=== PATIENT | male | born 1970 | race African-American/Black ===

== ENCOUNTER → 2022-01-27 | Day surgery (SDC) | payer BC ==
[~2022-01-27] MED LIST: CIALIS5 MG PO; FENTANYL CITRATE/PF 100MCG/2 ML INJ ONE; GLUCAGON FOR INJ 1 MG VIAL ONE; HYOSCYAMINE SULFATE 0.5 MG/ML INJ ONE; LEFLUNOMIDE10 MG PO; LIDOCAINE HCL 2% LOCAL INJ 5 ML SDV VIAL INJ ONE; METHOTREXATE PO; PLAQUENIL200 MG PO; PROPOFOL IV EMULSION 50 ML IV ONE; PROTONIX20 MG PO
[2022-01-27 11:30] VITALS: BP 121/83
== END | disposition home or self-care (01) ==
LOC: OR 09:04
PROVIDERS: ATTEND Internal Medicine Gastroenterology
DX: Z12.11 Encounter for screening for malignant neoplasm of colon (principal); D12.0 Benign neoplasm of cecum; K62.89 Other specified diseases of anus and rectum; K64.8 Other hemorrhoids; F17.210 Nicotine dependence, cigarettes, uncomplicated; Z71.6 Tobacco abuse counseling; Z01.810 Encounter for preprocedural cardiovascular examination
CPT/HCPCS: 45380; 45385; 93005; J1610; J1980; J2704; 45378; J2001; J3010

== ENCOUNTER 2022-06-24 07:00 | Outpatient (RCR) | payer BC ==
[~2022-06-24 07:00] MED LIST changes: -FENTANYL CITRATE/PF 100MCG/2 ML INJ ONE; -GLUCAGON FOR INJ 1 MG VIAL ONE; -HYOSCYAMINE SULFATE 0.5 MG/ML INJ ONE; -LIDOCAINE HCL 2% LOCAL INJ 5 ML SDV VIAL INJ ONE; -PROPOFOL IV EMULSION 50 ML IV ONE
== END 2022-06-25 ==
LOC: PT 07:00
PROVIDERS: ATTEND Neurological Surgery
DX: M51.16 Intervertebral disc disorders with radiculopathy, lumbar region (principal)

== ENCOUNTER 2022-07-06 06:59 | Outpatient (RCR) | payer BC | END 2022-07-25 | LOC: PT 06:59 | PROVIDERS: ATTEND Neurological Surgery | DX: M51.16 Intervertebral disc disorders with radiculopathy, lumbar region (principal) ==

== ENCOUNTER → 2023-02-12 | Day surgery (SDC) | payer BC ==
[~2023-02-12] MED LIST changes: +LACTATED RINGER'S 1,000 ML BAG IV ONE; +LIDOCAINE HCL 2% LOCAL INJ 5 ML SDV VIAL INJ ONE; +METOCLOPRAMIDE HCL 10 MG/2ML VIAL ONE; +PROPOFOL IV EMULSION 10 MG/ML 20 ML VIAL ONE
[2023-02-12 11:30] VITALS: BP 131/87; PULSE 58; RESP 17; O2SAT 100
== END | disposition home or self-care (01) ==
LOC: OR 09:20
PROVIDERS: ATTEND Internal Medicine Gastroenterology
DX: K21.9 Gastro-esophageal reflux disease without esophagitis (principal); K29.50 Unspecified chronic gastritis without bleeding; K20.90 Esophagitis, unspecified without bleeding; K44.9 Diaphragmatic hernia without obstruction or gangrene; G89.29 Other chronic pain; F17.200 Nicotine dependence, unspecified, uncomplicated; Z01.810 Encounter for preprocedural cardiovascular examination; Z79.899 Other long term (current) drug therapy
CPT/HCPCS: 43239; 93005; C9113; J2001; J2704; J2765; J7121

== ENCOUNTER → 2024-12-15 | Day surgery (SDC) | payer BC ==
[~2024-12-15] MED LIST changes: +CIALIS10 MG; +FAMOTIDINE20 MG PO; +FENTANYL CITRATE/PF 100MCG/2 ML INJ ONE; +GEMTESA75 MG PO; +HYOSCYAMINE SULFATE 0.5 MG/ML INJ ONE; -LACTATED RINGER'S 1,000 ML BAG IV ONE; +MIDAZOLAM HCL 2 MG/2 ML VIAL ONE; +NEURONTIN300 MG PO; +ONDANSETRON HCL INJ 2MG/ML 2ML 2 MG/ML VIAL ONE; +PROPOFOL IV EMULSION 50 ML IV ONE; +ROPINIROLE HC0.25 MG PO
[2024-12-15] MEDS: LACTATED RINGER'S 1,000 ML ONE (07:42)
[2024-12-15 10:05] VITALS: BP 102/62; PULSE 95; RESP 16; TEMP 97.5; O2SAT 97
== END | disposition home or self-care (01) ==
LOC: OR 06:28
PROVIDERS: ATTEND Internal Medicine Gastroenterology
DX: K29.50 Unspecified chronic gastritis without bleeding (principal); Z86.0100 Personal history of colon polyps, unspecified; K31.7 Polyp of stomach and duodenum; K31.89 Other diseases of stomach and duodenum; K31.1 Adult hypertrophic pyloric stenosis; K20.90 Esophagitis, unspecified without bleeding; K44.9 Diaphragmatic hernia without obstruction or gangrene; K64.8 Other hemorrhoids; M51.9 Unspecified thoracic, thoracolumbar and lumbosacral intervertebral disc disorder; F17.200 Nicotine dependence, unspecified, uncomplicated; Z01.810 Encounter for preprocedural cardiovascular examination; Z79.899 Other long term (current) drug therapy
CPT/HCPCS: 43239; 43245; 43251; 45378; 93005; C1726; J1980; J2003; J2250; J2405; J2470; J2704 ×2; J2765; J3010; J7121